=== PATIENT | female | born 1995 | race Two or more races ===

== ENCOUNTER 2019-01-23 19:50 | Emergency (ER) | payer OTHER ==
[~2019-01-23] VITALS: Ht 152.4 cm; Wt 52.2 kg
== END 2019-01-23 23:05 | disposition home or self-care (01) ==
LOC: ER 19:50
DX: N30.80 Other cystitis without hematuria (principal)

== ENCOUNTER 2020-08-19 17:53 | Emergency (ER) | payer OTHER ==
[~2020-08-19] VITALS: Ht 157.5 cm; Wt 52.2 kg
== END 2020-08-19 22:58 | disposition home or self-care (01) ==
LOC: ER 17:53
DX: R11.11 Vomiting without nausea (principal); K29.70 Gastritis, unspecified, without bleeding; Z03.818 Encounter for observation for suspected exposure to other biological agents ruled out

== ENCOUNTER 2022-08-12 08:45 | Emergency (ER) | payer OTHER ==
[~2022-08-12] VITALS: Ht 157.5 cm; Wt 56.7 kg
== END 2022-08-12 12:04 | disposition home or self-care (01) ==
LOC: ER 08:45
DX: N39.0 Urinary tract infection, site not specified (principal); Z20.828 Contact with and (suspected) exposure to other viral communicable diseases

== ENCOUNTER 2025-08-12 21:47 | Emergency (ER) | payer OTHER ==
[~2025-08-12] VITALS: Ht 157.5 cm; Wt 59.0 kg
[2025-08-12] MEDS ORDERED: ASTEPRO AL205.5 MCG/ (21:59)
[2025-08-12] MEDS ORDERED: FLUTICASONE-SAL12 G2 (22:00)
[2025-08-13] MEDS ORDERED: 0.9 % SODIUM CHLORIDE 1,000 ML IV STA ×2 (00:22→03:30)
[2025-08-13] MEDS ORDERED: FAMOTIDINE/PF 20 MG/2 ML VIAL IV STA (00:23)
[2025-08-13] MEDS ORDERED: ONDANSETRON HCL 2 MG/ML VIAL IV STA (00:23)
[2025-08-13] MEDS ORDERED: ONDANSETRON HCL 2 MG/ML VIAL ONE (00:28)
[2025-08-13] MEDS ORDERED: FAMOTIDINE/PF 20 MG/2 ML VIAL ONE (00:28)
[2025-08-13 01:19] LABS: BASO % 0.5 % (0.1-1.2); EOS # 0.46 (0.04-0.54); EOS % 3.1 % (0.7-7.0); LYMPH # 2.84 (1.18-3.74); LYMPH % 19.3 % (19.3-53.1); MEAN PLATELET VOLUME 9.50 fl (9.4-12.4); MONO # 1.08 (0.24-0.82); MONO % 7.3 % (4.7-12.5); NEUT # 10.21 (1.56-6.13); NEUT % 69.3 % (34.0-71.1); RED CELL DISTRIBUTION WIDTH 11.9 % (11.6-14.4)
[2025-08-13 01:50] LABS: INR 1.01
[2025-08-13 01:54] LABS: ERYTHROCYTE SEDIMENTATION RATE 12 mm/hr (0-20)
[2025-08-13 02:13] LABS: ALT/SGPT 28 U/L (12-78); AST/SGOT 18 U/L (15-37); BILIRUBIN TOTAL 0.45 mg/dL (0.3-1.2); BUN CREA RATIO 20 (7.0-25.0); CREATININE SERUM 0.66 mg/dL (0.55-1.02); GFR 107.43; GLOBULINA 3.8 G/DL (2.4-3.5); GLUCOSE FASTING 83 mg/dL (65-100); OSMOLALITY SERUM 273 MOSM/KG (275-295)
[2025-08-13 02:44] LABS: URINE APPEARANCE Clear; URINE BILIRRUBIN Negative (NEGATIVE); URINE BLOOD Negative; URINE COLOR Yellow; URINE GLUCOSE Negative (NEGATIVE); URINE LEUKOCYTE Small; URINE NITRATE Negative; URINE PROTEIN Negative (NEGATIVE); URINE UROBILINOGEN 0.2 E.U./dl
[2025-08-13 02:47] LABS: URINE BACTERIA 2997.1 uL (0.0-1933); URINE EPITHELIAL CELLS 108.5 uL (0.0-38.8); URINE RBC 19.9 uL (0.0-20.8); URINE WBC 185.9 uL (0.0-23.2)
[2025-08-13 03:19] LABS: URINE CAST 0.84 uL (0.0-1.40); URINE KETONE 40 (NEGATIVE)
[2025-08-13] MEDS ORDERED: CEFTRIAXONE SODIUM 1,000 MG VIAL IV STA (03:30)
[2025-08-13 04:09] LABS: COVID-19 AG NEGATIVE (NEGATIVE)
[2025-08-13] MEDS ORDERED: CEFTRIAXONE SODIUM 1,000 MG VIAL ONE (04:47)
[2025-08-13] MEDS ORDERED: ONDANSETRON ODT4 MG PO (08:56)
[2025-08-13] MEDS ORDERED: PEPCID AC20 MG PO (08:56)
== END 2025-08-13 09:54 | disposition home or self-care (01) ==
LOC: ER 21:48
PROVIDERS: Physician Assistant Medical
DX: O21.0 Mild hyperemesis gravidarum (principal); Z3A.01 Less than 8 weeks gestation of pregnancy; Z20.822 Contact with and (suspected) exposure to COVID-19; Z88.2 Allergy status to sulfonamides